=== PATIENT | male | born 1980 | race Caucasian/White ===

== ENCOUNTER 2017-09-25 11:39 | Emergency (ER) | payer MEDICAID ==
[~2017-09-25] VITALS: Ht 177.8 cm; Wt 86.8 kg
[2017-09-25 13:45] VITALS: BP 128/89
== END 2017-09-25 13:47 | disposition home or self-care (01) ==
LOC: ED 12:41
DX: F41.1 Generalized anxiety disorder (principal); F10.239 Alcohol dependence with withdrawal, unspecified; F10.229 Alcohol dependence with intoxication, unspecified
CPT/HCPCS: 99284